=== PATIENT | male | born 1950 | race Caucasian/White ===

== ENCOUNTER 2016-10-10 10:12 | Emergency (ER) | payer OTHER ==
[~2016-10-10] VITALS: Ht 185.4 cm; Wt 104.5 kg
[~2016-10-10 10:12] MED LIST: AMOXICILLIN250 MG PO; ATACAND HCT PO; ATACAND HCT1 TABLET PO; AUGMENTIN500 MG PO; BENZONATATE200 MG PO; CLINDAMYCIN HC300 MG PO; COMBIVENT INH14.7 GM; Combivent IH; DIOVAN320 MG PO; DOXYCYCLINE HY100 M1; FLONASE16 G1 BOTH NARES; LEXAPRO20 MG PO; LOPRESSOR50 MG PO; MIRTAZAPINE45 MG PO; MONTELUKAST SOD10 MG PO; MUCINEX1200 MG PO; NORCO 5/3251 TABLET PO; NORVASC10 MG PO; NORVASC5 MG PO; PREDNISONE10 MG PO; PROVENTIL,2.5 MG/3 M IH; SERTRALINE HCL50 MG PO; SPIRIVA1 INHALATI IH; SYMBICORT60 INHALAT IH; VALSARTAN320 MG PO; VENTOLIN HFA18 GM IH; ZITHROMAX Z-PA250 MG PO; ZITHROMAX500 MG PO; ZYRTEC10 M1 PO; predniSONE PO
[2016-10-10] MEDS ORDERED: FLEXERIL10 MG PO (11:13)
[2016-10-10] MEDS ORDERED: PREDNISONE10 MG PO (11:13)
[2016-10-10] MEDS ORDERED: LORTAB 5-325 M1 EACH PO (11:19)
[2016-10-10] MEDS ORDERED: LISINOPRIL5 MG PO (11:27)
[2016-10-10] MEDS ORDERED: ASPIRIN81 M2 PO (11:28)
[2016-10-10 11:37] VITALS: BP 141/87
== END 2016-10-10 11:37 | disposition home or self-care (01) ==
LOC: EME 10:12
DX: M54.42 Lumbago with sciatica, left side (principal); S39.012A Strain of muscle, fascia and tendon of lower back, initial encounter; X50.1XXA Overexertion from prolonged static or awkward postures, initial encounter; F17.200 Nicotine dependence, unspecified, uncomplicated; Z71.6 Tobacco abuse counseling; I10 Essential (primary) hypertension; J44.9 Chronic obstructive pulmonary disease, unspecified; J45.909 Unspecified asthma, uncomplicated; Z95.5 Presence of coronary angioplasty implant and graft; Z79.82 Long term (current) use of aspirin
CPT/HCPCS: 99281; 99283